=== PATIENT | female | born 1995 | race Caucasian/White ===

== ENCOUNTER 2017-12-11 13:17 | Emergency (ER) | payer OTHER ==
[~2017-12-11] VITALS: Ht 167.6 cm; Wt 52.9 kg
[2017-12-11 14:14] VITALS: BP 132/78
[2017-12-11 16:00] LABS: HEMATOCRIT 36.8 % (36.0-46.0); HEMOGLOBIN 12.9 G/DL (11.9-15.5); MCHC 35.1 G/DL (30.0-36.0); MCV 85.6 FL (83-99); PLATELET COUNT 198 K/uL (156-360); RBC DIS.WIDTH-CV 12.6 % (11.8-14.6); WHITE BLOOD COUNT 7.7 K/uL (4.1-10.2)
[2017-12-11 16:09] LABS: ALBUMIN 3.8 g/dL (3.2-4.8); CHLORIDE 102 mEq/L (99-109); POTASSIUM 3.9 mEq/L (3.7-5.4); SODIUM 136 mEq/L (136-147)
[2017-12-11 16:11] LABS: GLUCOSE 84 mg/dL (70-99); TOTAL PROTEIN 6.7 g/dL (6.4-8.3)
[2017-12-11 16:13] LABS: TOTAL BILIRUBIN 0.8 mg/dL (0.0-1.0)
[2017-12-11 16:15] LABS: ALKALINE PHOSPHATASE 64 IU/L (3-129); CREATININE 0.6 mg/dL (0.6-1.3); GFR ESTIMATE (CALCULATED) > 59 mL/min/
[2017-12-11 16:16] LABS: UREA NITROGEN (BUN) 5 mg/dL (9-23)
[2017-12-11 16:17] LABS: AST (GOT) 12 IU/L (2-34)
[2017-12-11 16:18] LABS: ALT (GPT) 8 IU/L (3-49)
[2017-12-11] MEDS ORDERED: PRENATAL TABLE1 EAC3 PO (18:59)
== END 2017-12-11 18:54 | disposition home or self-care (01) ==
LOC: EME 13:17
PROVIDERS: Nurse Practitioner Family
DX: Z32.01 Encounter for pregnancy test, result positive (principal); Z3A.21 21 weeks gestation of pregnancy
CPT/HCPCS: 76805; 80053; 81003; 84702; 85027; 99281; 99283